=== PATIENT | female | born 1995 | race Caucasian/White ===

== ENCOUNTER 2018-01-21 22:20 | Emergency (ER) | payer BC ==
[~2018-01-21] VITALS: Ht 162.6 cm; Wt 70.3 kg
[2018-01-22] MEDS ORDERED: ACETAMINOPHEN ES 500 MG TABLET PO ONE
[2018-01-22] MEDS ORDERED: MORPHINE SULFATE INJ 4 MG/ML DISP.SYRIN ONE
[2018-01-22] MEDS ORDERED: IV NS 0.9% 1,000 ML BAG IV ONE
[2018-01-22] MEDS ORDERED: ONDANSETRON HCL/PF 4 MG/2 ML VIAL IVP ONE
[2018-01-22] MEDS ORDERED: MORPHINE SULFATE INJ 2 MG/ML DISP.SYRIN IV ONE
[2018-01-22] MEDS ORDERED: ONDANSETRON HCL/PF 4 MG/2 ML VIAL ONE
[2018-01-22] MEDS ORDERED: ACETAMINOPHEN ES 500 MG TABLET ONE
[2018-01-22 00:16] LABS: APPEARANCE,URINE CLEAR (CLEAR); BILIRUBIN,URINE NEGATIVE (NEGATIVE); BLOOD, URINE TRACE Ery/uL (NEGATIVE); COLOR,URINE YELLOW (YELLOW); KETONES,URINE NEGATIVE (NEGATIVE); LEUKOCYTE ESTERASE ,URINE NEGATIVE (NEGATIVE); NITRITE, URINE NEGATIVE (NEGATIVE); PROTEIN,URINE 2+ mg/dl (NEGATIVE); UGLUCOSE NEGATIVE (NEGATIVE); UROBILINOGEN,URINE 0.2 EU/dL (0.2)
[2018-01-22 00:19] LABS: BACTERIA,URINE None seen /HPF (None Seen); RBC,URINE NONE SEEN /HPF (0-2); SQUAMOUS EPITHELIAL CELL,UR Few /HPF (None Seen); WBC,URINE 0-2 /HPF (0-3)
[2018-01-22] MEDS ORDERED: IV NS 0.9% 250 ML BAG IV ONE (01:30)
[2018-01-22 02:25] VITALS: BP 106/67
== END 2018-01-22 02:26 | disposition home or self-care (01) ==
LOC: ER 22:25
DX: A08.4 Viral intestinal infection, unspecified (principal)
CPT/HCPCS: 81001; 84703; 96361; 96374; 96375; 99284; A4606; J2270; J2405; J7030; J7040; Z7610; 81000-TC